=== PATIENT | male | born 1955 | race African-American/Black ===

== ENCOUNTER → 2019-05-19 | Day surgery (SDC) | payer MEDICARE, OTHER ==
--- NOTE | 2019-05-14 17:09 | Diagnostic Imaging Report ---
EXAMINATION: CHEST 2 VIEWS INDICATION: Pre-operative COMPARISON: None FINDINGS: LINES/TUBES:None LUNGS:The lungs are well-inflated. No focal consolidation or pulmonary edema. PLEURA:No pleural effusion or pneumothorax. MEDIASTINUM:The cardiomediastinal silhouette appears normal in size and shape. BONES/SOFT TISSUES:No acute osseous injury. ABDOMEN:No free air under the diaphragm. IMPRESSION: No focal pneumonia or pulmonary edema. Signed by: Chan Arellano MD on 05/14/2019 5:06 PM
[2019-05-14 17:14] LABS: ANION GAP 8.8 mmol/L (8-16); CALCIUM 8.7 mg/dL (8.4-10.2); CREATININE, SERUM 2.45 mg/dL (0.72-1.25); POTASSIUM 3.8 mmol/L (3.5-5.1)
[~2019-05-19] MED LIST: ALLOPURINOL100 MG PO; AMLODIPINE BESY10 MG PO; ATORVASTATIN CA80 MG PO; CARVEDILOL25 MG PO; CETIRIZINE HCL10 MG PO; CLONIDINE HCL0.2 MG PO; CLOTRIMAZOLE-BE15 GM TOP; DESFLURANE 240 ML BTL INH ONE; DEXAMETHASONE SOD PHOS INJ 4 MG/ML VIAL ONE; DIOVAN320 MG PO; ECOTRIN81 MG PO; FENTANYL CITRATE/PF 100MCG/2 ML INJ ONE; FERROUS SULFAT325 MG PO; FLUOCINONIDE-E15 GM TOP; FLUTICASONE P15.8 ML; GLIMEPIRIDE1 MG PO; GLYCOPYRROLATE INJ 0.2 MG/ML VIAL ONE; HYDRALAZINE HC100 MG PO; LATANOPROST 0.7.5 ML OU; LIDOCAINE HCL 2% LOCAL INJ 5 ML SDV VIAL INJ ONE; MIDAZOLAM HCL 2 MG/2 ML VIAL ONE; MUPIROCIN22 GM TOP; NEOSTIGMINE 1 MG/ML 10ML VIAL ONE; OMEPRAZOLE20 M1 PO; ONDANSETRON HCL INJ 2MG/ML 2ML 2 MG/ML VIAL ONE; OXYMETAZOLINE HCL 0.05% NAS 1 SPRAY BTL ONE; PROPOFOL IV EMULSION 10 MG/ML 20 ML VIAL ONE; ROCURONIUM BROMIDE 10 MG/ML 5ML VIAL ONE; SUCCINYLCHOLINE CHLORIDE 20 MG/ML 10ML VIAL ONE; TIMOLOL MALEATE5 M3 OU
--- OUTSIDE RECORDS SUMMARY | 2019-05-19 05:41 | XMS REPORT | Encounter Summary ---
Author Organization Unknown Address [address] [place] [address] Phone [phone] Care Team Providers Care Director Pediatric Name Role Phone Dr. Mihir Gregory 3 [phone] Mihir Gregory Jr, MD 3 [phone] Ryan Farrell MD 82 [phone] Feng Foreman MD 107 [phone] Kiko Rowan MD 111 [phone] Julisa Gaston MD 111 [phone] Reason for Visit hoarseness; diabetes Instructions 1. Type 2 diabetes mellitus glucose, fingerstick, blood HbA1c (hemoglobin A1c), blood 2. Retinopathy with type 2 diabetes mellitus 3. Chronic hoarseness ENT referral gastroenterology referral 4. Proteinuric nephropathy due to diabetes mellitus microalbumin/creatinine, mass ratio, urine 5. Chronic kidney disease stage 3 6. Hyperlipidemia lipid panel, serum CMP, serum or plasma 7. Malignant hypertensive chronic kidney disease CBC w/ auto diff urinalysis, dipstick 8. Screening for malignant neoplasm of prostate PSA, serum or plasma 9. Peripheral vascular disease 10. Morbid obesity learning about healthy weight 11. Body mass index 30+ - obesity body mass index: care instructions learning about healthy weight Discussion Note: None recorded. Plan of Care Reminders Provider Appointments Return to Office on or around 01/08/2019 Mihir Gregory Jr, MD Lab Glucose, Fingerstick, [facility]), Blood 01/08/2019 [facility] Microalbumin/creatinine, Mass Ratio, Urine 01/08/2019 [facility] Lipid Panel, Serum 01/08/2019 [facility] CMP, Serum or Plasma 01/08/2019 [facility] CBC W/ Auto Diff 01/08/2019 [facility] PSA, Serum or Plasma 01/08/2019 [facility] Urinalysis, Dipstick 01/08/2019 [facility] Referral ENT Referral 01/08/2019 Gastroenterology Referral 01/08/2019 Procedures None recorded. Surgeries None recorded. Imaging None recorded. Medications Name Start Date allopurinol 100 mg tablet TAKE 1 TABLET BY MOUTH EVERY DAY amlodipine 10 mg tablet TAKE 1 TABLET BY MOUTH EVERY DAY atorvastatin 80 mg tablet TAKE 1 TABLET BY MOUTH EVERY DAY carvedilol 25 mg tablet TAKE 1 TABLET BY MOUTH TWICE A DAY cetirizine 10 mg tablet TAKE 1 TABLET BY MOUTH EVERY DAY clonidine HCl 0.2 mg tablet TAKE 1 TABLET BY MOUTH TWICE A DAY clotrimazole-betamethasone 1 %-0.05 % topical cream APPLY TO THE AFFECTED AND SURROUNDING AREAS OF SKIN BY TOPICAL ROUTE 2 TIMES PER DAY IN THE MORNING AND EVENING FOR 2 WEEKS Ecotrin Low Strength 81 mg tablet,enteric coated Take 1 tablet every day by oral route. ferrous sulfate 325 mg (65 mg iron) tablet,delayed release Take 1 tablet every day by oral route for 90 days. fluticasone propionate 50 mcg/actuation nasal spray,suspension SPRAY 1 SPRAY INTO EACH NOSTRIL TWICE A DAY glimepiride 1 mg tablet TAKE 1 TABLET BY MOUTH EVERY DAY hydralazine 100 mg tablet TAKE 1 TABLET BY MOUTH THREE TIMES A DAY omeprazole 20 mg capsule,delayed release TAKE 1 CAPSULE BY MOUTH EVERY DAY timolol maleate 0.5 % eye gel forming solution Instill 1 drop every day by ophthalmic route for 45 days. True Metrix Glucose Test Strip Take 1 strip every day by miscell. route. valsartan 320 mg tablet TAKE 1 TABLET BY MOUTH EVERY DAY Medications Administered None recorded. Vitals Height Weight BMI Blood Pressure 5 ft 8 in 233 lbs 35.4 kg/m2 128/72 mm[Hg] Results Lab Results Date Name Specimen Result Interpretation Description Value Range Status Address Glucose, Fingerstick, Blood Blood Glucose: mg/dl 114 [facility]: [address] [facility], [place] Allergies Code Code System Name Reaction Severity Status Onset NKDA Problems Name Status Onset Date Source Type 2 Diabetes Mellitus Active 01/12/2016 Glaucoma Due to Chamber Angle Anomaly Active 01/12/2016 External Cataract of Right Eye Active 01/12/2016 External Blindness - Both Eyes Active 12/18/2016 Hyperlipidemia Active 02/02/2017 Gout Active 02/02/2017 Ocular Hypertension Active 02/02/2017 Gastroesophageal Reflux Disease Active 02/02/2017 Chronic Kidney Disease Stage 3 Active 02/02/2017 Retinopathy with Type 2 Diabetes Mellitus Active 02/02/2017 Legal Blindness Active 05/03/2017 Wjvubjzagxg-xogcfkffro-tulyrs Inhibitor Adverse Reaction Active 05/03/2017 History of Cerebrovascular Accident Active 05/03/2017 Proteinuric Nephropathy Due to Diabetes Mellitus Active 07/04/2017 Type 2 Diabetes Mellitus Active 10/08/2017 Secondary Hyperparathyroidism Active 12/12/2017 Malignant Hypertensive Chronic Kidney Disease Active 06/12/2018 Procedures Date Name Performed by Colonoscopy Information not available Colonoscopy Information not available Colonoscopy Information not available Colonoscopy & Polypectomy Information not available Colonoscopy Information not available Eye Surgery Information not available Vaccine List Vaccine Type influenza, high dose seasonal 12/11/20170.5 mL Influenza, injectable, MDCK, quadrivalent 11/20/20160.5 mL pneumococcal polysaccharide PPV23 07/03/20170.5 mL zoster subunit 07/03/2017 01/09/2018 1 0.5 mL vial(s) Social History Tobacco Smoking Status Never Smoker Past Encounters 01/08/2019 Type 2 Diabetes Mellitus; Retinopathy with Type 2 Diabetes Mellitus; Chronic Hoarseness; Proteinuric Nephropathy Due to Diabetes Mellitus; Chronic Kidney Disease Stage 3; Hyperlipidemia; Malignant Hypertensive Chronic Kidney Disease; Screening for Malignant Neoplasm of Prostate; Peripheral Vascular Disease; Morbid Obesity; Body Mass Index 30+ - Obesity Mihirshon Gregory Jr, MD: [address] [facility], [facility], [place] [address], Ph. History of Present Illness Diabetes F/U Reported By: Patient HPI: Review finger sticks: home blood sugar range high. Labs: last A1C result: 6.5. Context: no side effects from medications. Associated Symptoms: no dizziness, no sweats, no headaches, no confusion, no increased thirst, no increased appetite, no increased urination, no blurred vision, no numbness of feet Notes: Endorses medication compliance. Hypertension Reported By: Patient HPI: Severity: mild, intense. Onset/Timing: gradual onset. Alleviating Factors: relieved with rest, medication. Self Care: not under emotional stress, blood pressure goal: 130/80 140/80. Associated Symptoms: no shortness of breath, no fatigue, no decline in exercise capacity Hyperlipidemia Reported By: Patient HPI: Type of hyperlipidemia: combined, hypercholesterolemia. Duration: chronic. Current Therapy: currently taking: atorvastatin, last LDL level: 118 date: 118. Complications: no coronary artery disease. Risk Factors: diabetes, hypertension, obesity Note:Patient presents for routine blood pressure evaluation. Currently without new complaint.
Review of Systems Comprehensive General Adult ROS, Diabetes F/U ROS Reported By: Patient Constitutional: Constitutional: no fever, no significant weight gain, no significant weight loss, no exercise intolerance Eyes: Eyes: no vision change Cardiovascular: Cardiovascular: no chest pain, no shortness of breath when walking, no palpitations, no lightheadedness Respiratory: Respiratory: no cough, no wheezing, no shortness of breath Gastrointestinal: Gastrointestinal: no abdominal pain, no nausea, no vomiting, no constipation, normal appetite, no diarrhea Genitourinary: Genitourinary: no difficulty urinating, no increased frequency Musculoskeletal: Musculoskeletal: no muscle weakness, no arthralgias/joint pain Integumentary: Skin: no rashes, no laceration Neurologic: Neurologic: no weakness, no numbness, no dizziness Endocrine: Endocrine: no fatigue Physical Exam Upper Respiratory Infection Exam Comprehensive, Cardiology Exam, Diabetes, Diabetic Foot Exam Reported By: Patient Constitutional: General Appearance in no acute distress, obese Head: Sinuses no tenderness Eyes: Pupils EOM intact, PERRLA, conjunctiva non-injected Ears: Right External auditory canal normal appearance, no obstruction, no erythema, no discharge. Left External auditory canal normal appearance, no obstruction, no erythema, no discharge. Right Tympanic membrane landmarks clear, bulging. Left Tympanic membrane: landmarks clear, bulging Nose: Nasal Skin: no lesion, no lacerations. Nasal Mucosa normal, pink and moist Oral Cavity/Mouth: Lips, teeth, gums normal lips, normal gums. Oral Mucosa: normal, moist, no lesions. Tongue: normal tongue. Tonsils: normal tonsils, no lesions. Posterior pharynx: lymphoid hyperplasia (cobblestoning) Lymph Nodes: Cervical no palpable lymph node enlargement Neck: Neck symmetrical, trachea midline Lungs: Respiratory effort unlabored. Auscultation breath sounds normal, no wheezing, no rales / crackles, no rhonchi Cardiovascular System: Auscultation regular rate and rhythm, no murmur, no rubs
--- OUTSIDE RECORDS SUMMARY | 2019-05-19 05:41 | XMS REPORT | Encounter Summary ---
Author Organization Unknown Address [address] [place] [address] Phone [phone] Care Team Providers Care Mold Tooler Name Role Phone Dr. Mihir Gregory 3 [phone] Mihir Gregory Jr, MD 3 [phone] Ryan Farrell MD 82 [phone] Feng Foreman MD 107 [phone] Kiko Rowan MD 111 [phone] Julisa Gaston MD 111 [phone] Rodney Cardenas MD 118 [phone] Reason for Visit hyperlipidemia; hypertension; diabetes Instructions 1. Type 2 diabetes mellitus glucose, fingerstick, blood True Metrix Air Glucose Meter kit True Metrix Glucose Test Strip TRUEplus Lancets 33 gauge 2. Malignant hypertensive chronic kidney disease hydralazine 100 mg tablet 3. Chronic kidney disease stage 3 4. Secondary hyperparathyroidism Discussion Note: None recorded. Patient educational handouts: No information available. Plan of Care Reminders Provider Appointments None recorded. Lab Glucose, Fingerstick, Blood 06/12/2018 [facility] Referral None recorded. Procedures None recorded. Surgeries None recorded. Imaging None recorded. Medications Name Start Date allopurinol 100 mg tablet TAKE 1 TABLET BY MOUTH EVERY DAY amlodipine 10 mg tablet TAKE 1 TABLET BY MOUTH EVERY DAY atorvastatin 80 mg tablet Take 1 tablet every day by oral route. carvedilol 25 mg tablet Take 1 tablet twice a day by oral route. cetirizine 10 mg tablet TAKE 1 TABLET BY MOUTH EVERY DAY clonidine HCl 0.2 mg tablet Take 1 tablet twice a day by oral route. clotrimazole-betamethasone 1 %-0.05 % topical cream APPLY [...] day by oral route for 90 days. fluocinonide 0.05 % topical cream APPLY BID TO AFFECTED AREA fluticasone propionate 50 mcg/actuation nasal spray,suspension SPRAY 1 SPRAY INTO EACH NOSTRIL TWICE A DAY glimepiride 1 mg tablet TAKE 1 TABLET BY MOUTH EVERY DAY hydralazine 100 mg tablet Take 1 tablet 3 times a day by oral route. latanoprost 0.005 % eye drops losartan 100 mg tablet Take 1 tablet every day by oral route. mupirocin 2 % topical ointment APPLY A SMALL AMOUNT TO THE AFFECTED AREA BY TOPICAL ROUTE 3 TIMES PER DAY omeprazole 20 mg capsule,delayed release Take 1 capsule every day by oral route for 90 days. timolol maleate 0.5 % eye gel forming solution Instill 1 drop every day by ophthalmic route for 45 days. True Metrix Glucose Test Strip Take 1 strip every day by miscell. route. Medications Administered None recorded. Vitals Height Weight BMI Blood Pressure 5 ft 8 in 234 lbs 35.6 kg/m2 130/68 mm[Hg] Lab Results Date Name Specimen Result Interpretation Description Value Range Status Address Glucose, Fingerstick, Blood Blood Glucose: mg/dl 100 [facility] ([facility]: [id number] [facility] 5[facility] Allergies Code Code System Name Reaction Severity [...] Chronic Kidney Disease Stage 3 Active 02/02/2017 Diabetic Retinopathy Associated with Type 2 Diabetes Mellitus Active 02/02/2017 Legal Blindness Active 05/03/2017 Kexjmlxdiyd-usouhpviur-fafyoi Inhibitor Adverse Reaction Active 05/03/2017 History of Cerebrovascular Accident Active 05/03/2017 Proteinuric Diabetic Nephropathy Active 07/04/2017 Type 2 Diabetes Mellitus Active 10/08/2017 Secondary Hyperparathyroidism Active 12/12/2017 Malignant Hypertensive Chronic Kidney Disease Active 06/12/2018 Procedures Date Name Performed by 01/31/2016 Colonoscopy Information not available 11/10/2010 Colonoscopy Information not available 10/12/2008 Colonoscopy & Polypectomy Information not available Eye Surgery Information not available Vaccine List Vaccine Type influenza, high dose seasonal 12/11/20170.5 mL Influenza, injectable, MDCK, quadrivalent 11/20/20160.5 mL pneumococcal polysaccharide PPV23 07/03/20170.5 mL zoster subunit 07/03/2017 01/09/2018 1 0.5 mL vial(s) Social History Smoking Status Never Smoker Past Encounters 06/12/2018 Type 2 Diabetes Mellitus; Malignant Hypertensive Chronic Kidney Disease; Chronic Kidney Disease Stage 3; Secondary Hyperparathyroidism Mihir Gregory Jr, MD: [address] [facility], [address], [place] [address], Ph. History of Present Illness Diabetes F/U Reported By: Patient HPI: Labs: last A1C result: 5.4. Context: no side effects from medications. Associated Symptoms: no dizziness, no sweats, no headaches, no confusion, no increased thirst, no increased appetite, no increased urination, no blurred vision, no numbness of feet Notes: Endorses medication compliance. Hypertension Reported By: Patient HPI: Severity: mild. Onset/Timing: gradual onset. Alleviating Factors: relieved with rest, medication. Self Care: not under emotional stress, blood pressure goal: 130/80. Associated Symptoms: no shortness of breath, no fatigue, no decline in exercise capacity Hyperlipidemia Reported By: Patient HPI: Type of hyperlipidemia: combined, hypercholesterolemia. Duration: chronic. Current Therapy: currently taking: atorvastatin, last LDL level: 134 date: 134. Complications: no coronary artery disease. Risk Factors: diabetes, hypertension, obesity Note:Patient presents for routine medication refill . Currently without new complaint. Review of Systems Comprehensive General Adult ROS, Diabetes F/U ROS Reported By: Patient Constitutional: Constitutional: no significant weight gain, no significant weight loss Cardiovascular: Cardiovascular: no chest pain, no shortness of breath when walking Respiratory: Respiratory: no cough, no wheezing, no shortness of breath Endocrine: Endocrine: no fatigue Physical Exam General Adult Exam (male), Cardiology Exam, Diabetes, Diabetic Foot Exam Reported By: Patient Constitutional: General Appearance: well-nourished, well-developed, appears stated age. Level of Distress: NAD Lungs: Auscultation: good air movement, CTA except as noted, no wheezing, no rales/crackles, no rhonchi Cardiovascular: Heart Auscultation: RRR, normal S1, no rubs, no gallops, physiologically split S2, no click. Pulses including femoral / pedal: full and equal in all extremities except if noted. Systolic Murmur: not heard. Diastolic Murmur: not heard Musculoskeletal:: Extremities: no cyanosis, no edema, no peripheral signs of emboli Skin: Inspection and palpation: warm and dry Back: Thoracolumbar Appearance: no chest wall tenderness Foot Exam:: Right Foot: right foot was examined, right foot toes were examined. Left Foot: left foot was examined, left foot toes were examined
--- OUTSIDE RECORDS SUMMARY | 2019-05-19 05:41 | XMS REPORT | Encounter Summary ---
Author Organization Unknown Address [address] [place] [address] Phone [phone] Care Team Providers Care Csm Consultant Name Role Phone Dr. Mihir Gregory 3 [phone] Mihir Gregory Jr, MD 3 [phone] Ryan Farrell MD 82 [phone] Feng Foreman MD 107 [phone] Kiko Rowan MD 111 [phone] Julisa Gaston MD 111 [phone] Reason for Visit Type 2 diabetes mellitus; Malignant hypertensive chronic kidney disease; Proteinuric nephropathy due to diabetes mellitus; Chronic kidney disease stage 3; Advance Care Plan; AWV Annual Wellness Visit Male; Annual Alcohol Misuse Screening Instructions 1. Adult health examination 2. Morbid obesity learning about healthy weight 3. Advance directive discussed with patient advance care planning: care instructions 4. Depression screening 5. Alcohol consumption screening learning about alcohol misuse 6. Type 2 diabetes mellitus glucose, fingerstick, blood 7. Proteinuric nephropathy due to diabetes mellitus 8. Retinopathy with type 2 diabetes mellitus 9. Malignant hypertensive chronic kidney disease 10. Chronic kidney disease stage 3 11. Secondary hyperparathyroidism 12. Peripheral vascular disease 13. Pre-surgery evaluation Discussion Note: None recorded. Plan of Care Patient Instructions It was good to see you in the office today for your Medicare Annual Wellness Visit. You have been provided some information on healthy nutrition, including a diet rich in fruits and vegetables, minimizing simple carbohydrates, salt, and saturated fats. I want to encourage regular cardiovascular exercise such as walking at least 30 minutes daily, 5 times per week. Please remember to schedule any preventive health measures that we talked about today. You have also been provided education on fall prevention and community- based lifestyle interventions to help reduce health risks and promote healthy living in your Annual Wellness folder. Screening Recommendations 1. Vaccines Pneumonia: Influenza: Next Fall 2. Colorectal Cancer Screening: Colonoscopy (every 3 years) 3. Annual Prostate Screening 4. Annual Depression Screening 5. Annual Alcohol Screening 6. Annual Fall Risk Screening 7. Annual Health Risk Assessment Patient Instructions on Filing Advance Directives Be sure that you have easy access to your paperwork for your medical power of mill helper and ad vanced directives. Be sure that the designated person as well as important family members have copies of those forms as well. Please have contact information of your designee readily available. In the event of hospitalization, please bring those important documents with you for reference. Reminders Provider Appointments Return to Office on or around 07/14/2019 Mihir Gregory Jr, MD Lab Glucose, Fingerstick, Blood 04/16/2019 [facility] Referral None recorded. Procedures None recorded. Surgeries None recorded. Imaging None recorded. Medications Name Start Date Accu-Chek Sol Plus test strips CHECK BLOOD SUGAR ONCE A DAY allopurinol 100 mg tablet TAKE 1 TABLET [...] 90 days. fluocinonide 0.05 % topical cream UD fluticasone propionate 50 mcg/actuation nasal spray,suspension USE 1 SPRAY INTO EACH NOSTRIL TWICE A DAY glimepiride 1 mg tablet TAKE 1 TABLET BY MOUTH TWICE A DAY 90 DAY SUPPLY OK'ED; PLEASE KEEP APPT FOR 04/16/2019 hydralazine 100 mg tablet TAKE 1 TABLET BY MOUTH THREE TIMES A DAY latanoprost 0.005 % eye drops Instill 1 drop every day by ophthalmic route for 22 days. omeprazole 20 mg capsule,delayed release TAKE 1 CAPSULE BY MOUTH EVERY DAY timolol maleate 0.5 % eye drops timolol maleate 0.5 % eye gel forming solution Instill 1 drop every day by ophthalmic route for 45 days. valsartan 320 mg tablet TAKE 1 TABLET BY MOUTH EVERY DAY Medications Administered None recorded. Vitals Height Weight BMI Blood Pressure 5 ft 8 in 232 lbs 35.3 kg/m2 122/66 mm[Hg] Results Lab Results None recorded. Allergies Code Code System Name Reaction Severity [...] Mellitus Active 02/02/2017 Legal Blindness Active 05/03/2017 Enzfcvopedm-yipnoenlon-msnxln Inhibitor Adverse Reaction Active 05/03/2017 History of [...] mL pneumococcal polysaccharide PPV23 07/03/20170.5 mL zoster recombinant 07/03/2017 01/09/2018 1 0.5 mL vial(s) Social History Tobacco Smoking Status Never Smoker Past Encounters 04/16/2019 Adult Health Examination; Morbid Obesity; Advance Directive Discussed with Patient; Depression Screening; Alcohol Consumption Screening; Type 2 Diabetes Mellitus; Proteinuric Nephropathy Due to Diabetes Mellitus; Retinopathy with Type 2 Diabetes Mellitus; Malignant Hypertensive Chronic Kidney Disease; Chronic Kidney Disease Stage 3; Secondary Hyperparathyroidism; Peripheral Vascular Disease; Pre-surgery Evaluation Mihir Gregory Jr, MD: [address], [address], [place] [address], Ph. History of Present Illness Mini Cog Reported By: Patient Functional Ability: Personal/Social/ Draw a clock and write in the numbers in the correct place, and set the time to 10 minutes after 11 o'clock was completed correctly? No, 3 word recall: Your nurse or doctor will ask you to remember 3 words. In 5 minutes, they will ask you to repeat them. Patient recalled 3 words Notes: Unable to complete Clock, patient is legally blind. Generic HPI Template Reported By: Patient Notes: Patient presents for routine lab follow up. Currently without new complaint. Opioid Use Assessment Reported By: Patient Opioid Use Assessment:: Current Use of Opioids : no use of opioids (no further questions required) Note:I'd like to talk about what is ahead with your illness and do some thinking in advance about what is important to you so I can make sure we provide you with the care you want-is that okay? {{Yes*|No}} Review of Systems Comprehensive General Adult ROS, [...] regular rate and rhythm, no murmur, no rubs"
--- OUTSIDE RECORDS SUMMARY | 2019-05-19 05:41 | XMS REPORT | Encounter Summary ---
Author Organization Unknown Address [address] [place] [address] Phone [phone] Care Team Providers Care Fine Sander Name Role Phone Dr. Mihir Gregory 3 [phone] Mihir Gregory Jr, MD 3 [phone] Ryan Farrell MD 82 [phone] Feng Foreman MD 107 [phone] Kiko Rowan MD 111 [phone] Julisa Gaston MD 111 [phone] Rodney Cardenas MD 118 [phone] Reason for Visit Left nose bleed(s); hypertension; diabetes Instructions 1. Type 2 diabetes mellitus glucose, fingerstick, blood HbA1c (hemoglobin A1c), blood 2. Proteinuric diabetic nephropathy microalbumin:creatinine ratio, urine 3. Malignant hypertensive chronic kidney disease CMP, serum or plasma urinalysis, dipstick 4. Chronic kidney disease stage 3 5. Bleeding from nose CBC w/ auto diff 6. Hyperlipidemia high cholesterol: care instructions lipid panel, serum 7. Influenza vaccination declined Discussion Note: None recorded. Plan of Care Reminders Provider Appointments Est Patient 09/11/2018 10:15AM Mihir Gregory Jr, MD Lab Glucose, Fingerstick, Blood 07/30/2018 [facility] 07/30/2018 [facility] CMP, Serum or Plasma 07/30/2018 [facility] HbA1C (Hemoglobin a1C), Blood 07/30/2018 [facility] Microalbumin:creatinine Ratio, Urine 07/30/2018 [facility] Lipid Panel, Serum 07/30/2018 [facility] Urinalysis, Dipstick 07/30/2018 [facility]) [place] Referral None recorded. Procedures None recorded. Surgeries [...] by miscell. route. valsartan 320 mg tablet Medications Administered None recorded. Vitals Height Weight BMI Blood Pressure 5 ft 8 in 234 lbs 35.6 kg/m2 (1) 186/92 mm[Hg] (2) 180/90 mm[Hg] (3) 158/80 mm[Hg] Lab Results Date Name Specimen Result Interpretation Description Value Range Status Address 07/30/2018 Urinalysis, Dipstick Color Color yellow [facility] ([facility]) Hobby: [address] [place] Color Appearance clear [facility] ([facility]) Hobby: [address], [place] Color Glucose negative [facility] ([facility]: [address], [place] Color Bilirubin negative [facility] Hobby: [address], [place] Color Ketones negative [facility] ([facility]) [address]: [address] [place] Color Specific [place] 1.015 [facility] ([facility]) Hobby: [address] [place] Color Blood negative [facility] ([facility]) Hobby: [address] [place] Color PH 5.5 [facility] Hobby: [address] [place] Color Protein 100 [facility] Hobby: [address] [place] Color Urobilinogen 0.2 [facility] ([facility] Hobby: [address] [place] Color Nitrites negative [facility] ([facility]) Hobby: [address], [place] Color Leukocytes negative [facility] ([facility]) Hobby: [address], [place] Glucose, Fingerstick, Blood Blood Glucose: mg/dl 116 [facility] ([facility]) Hobby: [address], [place] Allergies Code Code System Name Reaction Severity [...] Mellitus Active 02/02/2017 Legal Blindness Active 05/03/2017 Dseastsomjp-rrxmanqoin-vnxyqw Inhibitor Adverse Reaction Active 05/03/2017 History of [...] History Smoking Status Never Smoker Past Encounters 07/30/2018 Type 2 Diabetes Mellitus; Proteinuric Diabetic Nephropathy; Malignant Hypertensive Chronic Kidney Disease; Chronic Kidney Disease Stage 3; Bleeding from Nose; Hyperlipidemia; Influenza Vaccination Declined Mihir Gregory Jr, MD: [address] [facility], [place] [address], Ph. History of Present Illness Diabetes F/U Reported By: Patient HPI: Labs: last A1C result: 5.4. Context: no side effects from medications. Associated Symptoms: no dizziness, no sweats, no headaches, no confusion, no increased thirst, no increased appetite, no increased urination, no blurred vision, no numbness of feet Notes: Endorses medication compliance. Hypertension Reported By: Patient HPI: Severity: intense. Onset/Timing: gradual onset. Alleviating Factors: relieved with rest, medication. Self Care: not under emotional stress, blood pressure goal: 140/80. Associated Symptoms: no shortness of breath, [...] Review of Systems Comprehensive General Adult ROS, Comprehensive Adult Problem ROS, Diabetes F/U ROS Reported By: Patient Constitutional: Constitutional: no fever Eyes: Eyes: no eye pain, no eye redness, no eye swelling, no eye discharge ENMT: Ears: no difficulty hearing, no ear pain, no ear discharge, no sinus pressure, no facial swelling, no congestion, no hoarseness. Nose: no sinus problems, frequent nosebleeds, nose problems. Mouth/Throat: no sore throat, no mouth ulcers Endocrine: Endocrine: no fatigue Constitutional: Constitutional: no significant weight change, normal activity level Physical Exam General Adult Exam (male), Upper Respiratory Infection Exam Comprehensive, Cardiology Exam, Diabetes, Diabetic Foot Exam Reported By: Patient Constitutional: General Appearance: in no acute distress Eyes: Lids and Conjunctivae: non-injected. Pupils: PERRLA. EOM: EOMI ENMT: Nose: no sinus tenderness, pink and moist, external nose lesion, crusted. Nasal Skin: no lacerations Neck: Neck: trachea midline, symmetrical Ears: Right External auditory canal normal appearance, no obstruction, no erythema, no discharge. Left External auditory canal normal appearance, no obstruction, no erythema, no discharge. Right Tympanic membrane landmarks clear. Left Tympanic membrane: landmarks clear Oral Cavity/Mouth: Lips, teeth, gums normal lips, normal gums. Oral Mucosa: normal, moist, no lesions. Tongue: normal tongue. Tonsils: normal tonsils, no lesions. Posterior pharynx: normal Lymph Nodes: Cervical no palpable lymph node enlargement
--- OUTSIDE RECORDS SUMMARY | 2019-05-19 05:41 | XMS REPORT | Encounter Summary ---
Author Organization Unknown Address [address] [place] [address] Phone [phone] Care Team Providers Care Sales Coach Name Role Phone Dr. Mihir Gregory 3 [phone] Mihir Gregory Jr, MD 3 [phone] Ryan Farrell MD 82 [phone] Feng Foreman MD 107 [phone] Kiko Rowan MD 111 [phone] Julisa Gaston MD 111 [phone] Reason for Visit lab follow-up Instructions 1. Type 2 diabetes mellitus glucose, fingerstick, blood 2. Malignant hypertensive chronic kidney disease 3. Chronic kidney disease stage 3 4. Secondary hyperparathyroidism Discussion Note: None recorded. Patient educational handouts: No information available. Plan of Care Reminders Provider Appointments Est Patient 04/09/2019 9:45AM Mihir Gregory Jr, MD Lab Glucose, Fingerstick, Blood 01/14/2019 [facility] Referral None recorded. Procedures None recorded. Surgeries [...] 1 TABLET BY MOUTH TWICE A DAY hydralazine 100 mg tablet TAKE 1 [...] ft 8 in 232 lbs 35.3 kg/m2 (1) 148/80 mm[Hg] (2) 136/78 mm[Hg] Results Lab Results Date Name Specimen Result Interpretation Description Value Range Status Address 01/08/2019 Microalbumin/creatinine, Mass Ratio, Urine Microalbumin Random Urine 962 ug/mL Final [facility]: [address] [place] [address] Normal Creatinine Random Urine 135.5 mg/dL 20.0-370.0 mg/dL Final [facility]: [address] [place] [address] High Microalbumin/creatinine (Random Urine) Ratio Calculated 710 mcg/mg creat Final [facility]: [address] [place], [place] [address] 01/08/2019 HbA1C (Hemoglobin a1C), Blood High Hemoglobin a1C 5.8 % of total HGB <5.7 % of total HGB Final [facility]: [address] [place], [place] [address] [address] EAG (mg/dL) 120 (calc) Final [facility]: [address] [place] [address] EAG (mmol/L) 6.6 (calc) Final [facility]: [address] [place], [place] [address]y [address] 01/08/2019 CBC W/ Auto Diff Wbc 4.23 x10*3/L 4.23-9.07 x10*3/L Final [facility]: [address] [place] [address] Low Rbc 3.34 10*12/L 4.63-6.08 10*12/L Final [facility]: [address] [place] [address] Low Hemoglobin 9.80 g/dL 13.70-17.50 g/dL Final [facility]: [address] [place] Low Hematocrit 29.6 % 40.1-51.0 % Final [facility]: [address] [place] Mcv 88.6 fL 80.0-100.0 fL Final [facility]: [address] [place] Mch 29.3 pg 25.7-32.2 pg Final [facility]: [address] [place] Mchc 33.1 g/dL 32.3-36.5 g/dL Final [facility]: [address] [place] High RDW-SD 46.4 fL 35.1-43.9 fL Final [facility]: [address] [place] Platelet Count 236.0 k/uL 163.0-337.0 k/uL Final [facility]: [address] [place] High Mpv 13.5 fL 7.5-11.5 fL Final [facility]: [address] [place] Neut% 62.0 % 34.0-67.9 % Final [facility]: [address] [place] Lymph% 26.7 % 21.8-53.1 % Final [facility]: [address] [place] Mon% 8.0 % 5.3-12.2 % Final [facility]: [address] [place] Eos% 2.6 % 0.8-7.0 % Final [facility]: [address] [place] Baso% 0.7 % 0.2-1.2 % Final [facility]: [address] [place] Neut# 2.6 x10*3/L 1.8-5.4 x10*3/L Final [facility]: [address] [place] Low Lymph# 1.1 x10*3/L 1.3-3.6 x10*3/L Final [facility]: [address] [place] Mon# 0.3 x10*3/L 0.3-0.8 x10*3/L Final [facility]: [address] [place] Eos# 0.11 x10*3/L 0.04-0.54 x10*3/L Final [facility]: [address] [place] Baso# 0.03 x10*3/L 0.01-0.08 x10*3/L Final [facility]: [address] [place] 01/08/2019 CMP, Serum or Plasma Alt 16 U/L 0-55 U/L Final [facility]: [address] Ast 17 U/L 5-34 U/L Final [facility]: [address] [place] [address] High Bun 31.7 mg/dL 8.4-25.0 mg/dL Final [facility]: [address] Alk Phos 101 unit/L 40-150 unit/L Final [facility]: [address] Glucose 96 mg/dL 70-99 mg/dL Final [facility]: [address] Low Albumin 3.1 g/dL 3.4-5.1 g/dL Final [facility]: [address] [place] [address] High Creatinine 2.41 mg/dL 0.72-1.25 mg/dL Final [facility]: [address] [place] [address] ABNORMAL eGFR Non- 27 mL/min/1.73m2 Final [facility]: [address] Total Bilirubin 0.4 mg/dL 0.2-1.2 mg/dL Final [facility]: [address] ABNORMAL eGFR - 33 mL/min/1.73m2 Final [facility]: [address] [place] [address] Sodium 140 mEq/L 135-145 mEq/L Final [facility]: [address] Potassium 4.0 mEq/L 3.5-5.1 mEq/L Final [facility]: [address] Chloride 110 mmol/L 98-110 mmol/L Final [facility]: [address] Low Total Protein 5.6 g/dL 6.1-8.2 g/dL Final [facility]: [address] Low Calcium 8.4 mg/dL 9.0-10.2 mg/dL Final [facility]: [facility] [address] Co2 21.8 mmol/L 20.0-32.0 mmol/L Final [facility]: [address] [place] [address] Anion Gap 8 calc Final [facility]: [facility] [address] 01/08/2019 Lipid Panel, Serum Low Hdl 36 mg/dL Final [facility]: [facility] [address] Triglyceride 77 mg/dL 0-150 mg/dL Final [facility]: [facility] [address] VLDL (Calculated) 15 mg/dL Final [facility]: [address] [place] [address] cholesterol/HDL Ratio 4.0 mg/dL Final [facility]: [facility] [address] non-HDL Cholesterol (Calculated) 108 mg/dL 0-160 mg/dL Final [facility]: [facility] [address] Cholesterol 144 mg/dL 0-200 mg/dL Final [facility]: [facility] [address] LDL (Calculated) 93 mg/dL 0-130 mg/dL Final [facility]: [facility] [address] 01/08/2019 PSA, Serum or Plasma PSA, Total 0.49 NG/mL 0.00-4.00 NG/mL Final [facility]: [facility] [address] 01/08/2019 Vitamin B12 + Folate, Serum or Blood Normal Vitamin B12 492 pg/mL 200-1100 pg/mL Final [facility]: [facility] [address] Normal Folate, Serum 7.5 NG/mL Final [facility]: [facility] [address] 01/08/2019 Iron + Total Iron-binding Capacity (TIBC), Serum Normal Iron, Total 60 mcg/dL 50-180 mcg/dL Final [facility]: [address] [place] [address] Low Iron Binding Capacity 194 mcg/dL (calc) 250-425 mcg/dL (calc) Final [facility]: [address] [place] [address], [place] Normal % Saturation 31 % (calc) 20-48 % (calc) Final [facility]: [address] [facility] [address], [place] 01/08/2019 Transferrin, Serum Low Transferrin 147 mg/dL 188-341 mg/dL Final [facility]: [address] [place] [address], [place] 01/08/2019 Urinalysis, Dipstick Color Color yellow [facility]: [address] [place] Color Appearance clear [facility]: [address] [place] Color Glucose negative [facility]: [address] [place] Color Bilirubin negative [facility]: [address] [place] Color Ketones negative [facility]: [address] [place] Color Specific [place] 1.020 [facility]: [address] [place] Color Blood negative [facility]: [address] [place] Color PH 5.5 [facility]: [address] [place] Color Protein 300 [facility]: [address] [place] Color Urobilinogen 0.2 [facility]: [address] [place] Color Nitrites negative [facility]: [address] [place] Color Leukocytes negative [facility]: [address] [place] Glucose, Fingerstick, Blood Blood Glucose: mg/dl 152 [facility]: [address] [place] Glucose, Fingerstick, Blood Blood Glucose: mg/dl 114 [facility]: [address], [place] Allergies Code Code System Name Reaction Severity [...] Mellitus Active 02/02/2017 Legal Blindness Active 05/03/2017 Rmnuvmpcuqv-lgsxauoxwp-qwyqyk Inhibitor Adverse Reaction Active 05/03/2017 History of [...] Tobacco Smoking Status Never Smoker Past Encounters 01/14/2019 Type 2 Diabetes Mellitus; Malignant Hypertensive Chronic Kidney Disease; Chronic Kidney Disease Stage 3; Secondary Hyperparathyroidism Mihir Gregory Jr, MD: [address], [facility], [place] [address], Ph. 01/08/2019 Type 2 Diabetes Mellitus; Retinopathy with Type 2 Diabetes Mellitus; Chronic Hoarseness; Proteinuric Nephropathy Due to Diabetes Mellitus; Chronic Kidney Disease Stage 3; Hyperlipidemia; Malignant Hypertensive Chronic Kidney Disease; Screening for Malignant Neoplasm of Prostate; Peripheral Vascular Disease; Morbid Obesity; Body Mass Index 30+ - Obesity Mihir Gregory Jr, MD: [address], [facility], [place] [address], Ph. History of Present Illness Generic HPI Template Reported By: Patient Notes: Patient presents for routine lab follow up. Currently without new complaint. Review of Systems Comprehensive General Adult ROS Reported By: Patient Constitutional: Constitutional: no significant weight gain, no significant weight loss Cardiovascular: Cardiovascular: no chest pain, no shortness of breath when walking Respiratory: Respiratory: no cough, no wheezing, no shortness of breath Endocrine: Endocrine: no fatigue Physical Exam Neurology Exam, Cardiology Exam Reported By: Patient Constitutional: Weight: well-nourished. Ambulation: ambulates independently Head: Size/Trauma: normocephalic Mental Status: Orientation oriented to person, oriented to place, oriented to time. Mood/Affect: appropriate mood, appropriate affect. Language: has spontaneous speech. Memory: recent memory intact, remote memory intact. Fund of Knowledge: current events, past history
--- OUTSIDE RECORDS SUMMARY | 2019-05-19 05:41 | XMS REPORT ---
Author Author [facility] Address Unknown Phone Unavailable Care Team Providers Care Supervisor Filter Assembly Name Role Phone JOSE HERNANDEZ Unavailable Unavailable Problems This patient has no known problems. Allergies, Adverse Reactions, Alerts This patient has no known allergies or adverse reactions. Medications This patient has no known medications. Results Test Description Test Time Test Comments Text Results Atomic Results Result Comments CHEST 2 VIEWS 2019-05-14 17:06:00 [place] [address] Patient Name: NIA SANDY MR #: [id number] : 1955 Age/Sex: 63/M Req #: [id number] Adm Physician: Ordered by: DAVID WILSON, JOSE WILSON Report #: [id number] Location: OR Room/Bed: Procedure: [id number] DX/CHEST 2 VIEWS Exam Date: 05/14/19 Exam Time: 1610 REPORT STATUS: Signed EXAMINATION: CHEST 2 VIEWS INDICATION: Pre-operative COMPARISON: None FINDINGS: LINES/TUBES:None LUNGS:The lungs are well-inflated. No focal consolidation or pulmonary edema. PLEURA:No pleural effusion or pneumothorax. MEDIASTINUM:The cardiomediastinal silhouette appears normal in size and shape. BONES/SOFT TISSUES:No acute osseous injury. ABDOMEN:No free air under the diaphragm. IMPRESSION: No focal pneumonia or pulmonary edema. Signed by: Esther Doherty MD on 05/14/2019 5:06 PM Dictated By: ESTHER DOHERTY MD 05 Transcribed By: JARRED WILDE on 05/14/191705 COPY TO: JOSE HERNANDEZ
--- OUTSIDE RECORDS SUMMARY | 2019-05-19 05:41 | XMS REPORT ---
Author Organization Unknown Address [address] [place] [address] Phone [phone] Care Team Providers Care Inspector Rag Sorting Name Role Phone Mihir Gregory Jr Unavailable Unavailable Allergies Code Code System Name Reaction Severity Status Onset NKDA Medications Name Status Start Date Stop Date allopurinol 100 mg tablet Active Not available amlodipine 10 mg tablet Active Not available atorvastatin 10 mg tablet Completed 11/23/2016 atorvastatin 20 mg tablet Completed 05/03/2017 atorvastatin 40 mg tablet Active Not available azithromycin 250 mg tablet Completed 12/18/2016 betamethasone dipropionate 0.05 % topical cream Completed 12/18/2016 carvedilol 25 mg tablet Active Not available cetirizine 10 mg tablet Take 1 tablet every day by oral route for 60 days. Active Not available Ecotrin Low Strength 81 mg tablet,enteric coated Take 1 tablet every day by oral route. Active Not available enalapril maleate 20 mg tablet TAKE 1 TABLET PO TWICE A DAY Completed 05/03/2017 ferrous sulfate 325 mg (65 mg iron) tablet,delayed release Take 1 tablet every day by oral route for 90 days. Active Not available fluocinonide 0.05 % topical cream Active Not available glimepiride 1 mg tablet Active Not available glimepiride 2 mg tablet TAKE 1 TABLET BY MOUTH EVERY DAY Completed 05/03/2017 hydralazine 25 mg tablet Take 1 tablet twice a day by oral route for 30 days. Active Not available hydrochlorothiazide 25 mg tablet Take 1 tablet(s) every day by oral route for 90 days. Completed 05/03/2017 latanoprost 0.005 % eye drops Active Not available nifedipine ER 60 mg tablet,extended release Completed 05/03/2017 nifedipine ER 60 mg tablet,extended release 24 hr TAKE 1 TABLET BY MOUTH TWICE A DAY Completed 05/03/2017 omeprazole 20 mg capsule,delayed release Take 1 capsule every day by oral route. Active Not available omeprazole 40 mg capsule,delayed release Completed 06/04/2017 SYLOBUCH ULTRA BLUE TEST STRIPS use once daily as directed Active Not available OneTouch Ultra Test strips Take 1 strip every day by miscell. route for 90 days. Completed 06/04/2017 pantoprazole 40 mg tablet,delayed release Completed 02/02/2017 timolol maleate 0.5 % eye gel forming solution Active Not available valsartan 320 mg tablet Active Not available Vitamin D3 1,000 unit capsule Take 1 capsule every day by oral route for 90 days. Active Not available Zostavax (PF) 19,400 unit/0.65 mL subcutaneous suspension Completed 05/03/2017 Problems Name Status Onset Date Source Blindness - Both Eyes Active 12/18/2016 Renal Disorder Due to Type 2 Diabetes Mellitus Active 02/02/2017 Hyperlipidemia Active 02/02/2017 Gout Active 02/02/2017 Ocular Hypertension Active 02/02/2017 Benign Hypertensive Renal Disease Active 02/02/2017 Gastroesophageal Reflux Disease Active 02/02/2017 Chronic Kidney Disease Stage 3 Active 02/02/2017 Diabetic Retinopathy Associated with Type 2 Diabetes Mellitus Active 02/02/2017 Type 2 Diabetes Mellitus Active 05/03/2017 Legal Blindness Active 05/03/2017 Bwbswyiebud-disfkgkrwo-rkhhkh Inhibitor Adverse Reaction Active 05/03/2017 History of Cerebrovascular Accident Active 05/03/2017 Chronic Kidney Disease Due to Type 2 Diabetes Mellitus Active 05/03/2017 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 Active 05/03/2017 Procedures Date Name Performed by Eye Surgery Information not available Lab Results Date Name Specimen Result Interpretation Description Value Range Status Address 05/03/2017 HbA1C (Hemoglobin a1C), Blood A1C W/eag 5.5 % 1.0-5.7 % Final [facility]: [address] [place] [address] Average Blood Glucose 111 mg/dL Final [facility]: [address] [place] [address], [place] 05/03/2017 Uric Acid, Serum or Plasma Uric Acid 6.9 mg/dL 3.5-7.2 mg/dL Final [facility]: [facility] [place] [address], [place] 02/02/2017 Hepatitis C Virus RNA, Quant, PCR, Serum or Plasma Normal Hepatitis C Antibody non-reactive non-reactive [facility]: [address] [place] [address] Normal Signal to Cut-off 0.03 <1.00 Final [facility]: [address] [place] [address], [place] 02/02/2017 Lipid Panel, Serum Low Hdl 37 mg/dL 40-60 mg/dL Final [facility]: [address] Triglyceride 130 mg/dL 0-149 mg/dL Final [facility]: [address] VLDL Calc. 26 mg/dL Final [facility]: [address] [facility]/HDL Ratio 6.1 mg/dL Final [facility]: [address] [facility] High non-HDL Cholesterol Calc. 188 mg/dL 0-160 mg/dL Final [facility]: [address] High Cholesterol 225 mg/dL 0-199 mg/dL Final [facility]: [address] High LDL Calc. 162 mg/dL 0-130 mg/dL Final [facility]: [address] [facility] 11/20/2016 CBC W/ Auto Diff Wbc 5.49 x10*3/L 4.23-9.07 x10*3/L Final [facility]: [address] [place] [address] Rbc 4.98 10*12/L 4.63-6.08 10*12/L Final [facility]: [address] Hemoglobin 14.30 g/dL 13.70-17.50 g/dL Final [facility]: [address] [facility] Hematocrit 42.2 % 40.1-51.0 % Final [facility]: [address] [facility] Mcv 84.7 fL 80.0-100.0 fL Final [facility]: [address] [facility] Mch 28.7 pg 25.7-32.2 pg Final [facility]: [address] Mchc 33.9 g/dL 32.3-36.5 g/dL Final [facility]: [address] [facility] High RDW-SD 45.1 fL 35.1-43.9 fL Final [facility]: [address] Platelet Count 267.0 k/uL 163.0-337.0 k/uL Final [facility]: [address] [facility] Mpv 11.2 fL 7.5-11.5 fL Final [facility]: [address] [place] Neut% 64.5 % 34.0-67.9 % Final [facility]: [address] [place] Lymph% 24.0 % 21.8-53.1 % Final [facility]: [address] [place] Mon% 7.5 % 5.3-12.2 % Final [facility]: [address] [place] Eos% 3.5 % 0.8-7.0 % Final [facility]: [address] [place] Baso% 0.5 % 0.2-1.2 % Final [facility]: [address] [place] Neut# 3.5 x10*3/L 1.8-5.4 x10*3/L Final [facility]: [address] [place] Low Lymph# 1.3 x10*3/L 1.3-3.6 x10*3/L Final [facility]: [address] [place] Mon# 0.4 x10*3/L 0.3-0.8 x10*3/L Final [facility]: [address] [place] Eos# 0.19 x10*3/L 0.04-0.54 x10*3/L Final [facility]: [address] [place] Baso# 0.03 x10*3/L 0.01-0.08 x10*3/L Final [facility]: [address] [place] 11/20/2016 CMP, Serum or Plasma Alt 18 U/L 0-55 U/L Final [facility]: [address] [facility] Ast 18 U/L 5-34 U/L Final [facility]: [address] [facility] High Bun 26.5 mg/dL 8.4-25.7 mg/dL Final [facility]: [address] [facility] Alk Phos 103 unit/L 40-150 unit/L Final [facility]: [address] [place] Low Glucose 66 mg/dL 70-99 mg/dL Final [facility]: [address] [place] Albumin 3.9 g/dL 3.5-5.0 g/dL Final [facility]: [address] [place] High Creatinine 1.83 mg/dL 0.72-1.25 mg/dL Final [facility]: [address] [place] Low eGFR Non- 38 mL/min/1.73m2 >60 mL/min/1.73m2 Final [facility]: [address] [place] Total Bilirubin 0.6 mg/dL 0.2-1.2 mg/dL Final [facility]: [address] [place] Low eGFR - 46 mL/min/1.73m2 >60 mL/min/1.73m2 Final [facility]: [address] [place] Sodium 141 mEq/L 136-145 mEq/L Final [facility]: [address] [facility] Potassium 4.1 mEq/L 3.5-5.1 mEq/L Final [facility]: [address] [place] High Chloride 109 mmol/L 98-107 mmol/L Final [facility]: [address] [place] Total Protein 7.4 g/dL 6.4-8.3 g/dL Final [facility]: [address] [place] Calcium 9.1 mg/dL 8.8-10.0 mg/dL Final [facility]: [address] [place] Low Co2 22.9 mmol/L 23.0-31.0 mmol/L Final [facility]: [address] [place] Anion Gap 9 calc Final [facility]: [address], [place] 11/20/2016 Lipid Panel, Serum Hdl 45 mg/dL 40-60 mg/dL Final [facility]: [address], [place] Triglyceride 61 mg/dL 0-149 mg/dL Final [facility]: [address], [place] VLDL Calc. 12 mg/dL Final [facility]: [address] cholesterol/HDL Ratio 5.0 mg/dL Final [facility]: [address] High non-HDL Cholesterol Calc. 182 mg/dL 0-160 mg/dL Final [facility]: [address] High Cholesterol 227 mg/dL 0-199 mg/dL Final [facility]: [address] High LDL Calc. 170 mg/dL 0-130 mg/dL Final [facility]: [address] [place] [address], [place] 11/20/2016 TSH, Serum or Plasma Tsh 1.298 uIU/mL 0.350-4.940 uIU/mL Final [facility]: [address] [place] [address], [place] 11/20/2016 PSA, Serum or Plasma PSA, Total 0.71 NG/mL <4.00 NG/mL Final [facility]: [address] [place] [place] [address], [place] 11/20/2016 HbA1C (Hemoglobin a1C), Blood A1C W/eag 5.5 % 1.0-5.7 % Final [facility]: [address] Average Blood Glucose 111 mg/dL Final [facility]: [address] [place] [address], [place] 11/20/2016 Uric Acid, Serum or Plasma Uric Acid 6.7 mg/dL 3.5-7.2 mg/dL Final [facility]: [address] Glucose, Fingerstick, Blood Blood Glucose: mg/dl 114 [facility]: [address] Glucose, Fingerstick, Blood Blood Glucose: mg/dl 98 [facility]: [address] Glucose, Fingerstick, Blood Blood Glucose: mg/dl 71 [facility]: [address] Urinalysis, Dipstick Color Color yellow [facility]: [address] [place] [address], [place] Color Appearance clear [facility]: [address] [place] [address], [place] Color Glucose negative [facility]: [address] Color Bilirubin negative [facility]: [address] Color Ketones negative [facility]: [address] Color Specific [place] 1.010 [facility]: [address] Color Blood trace [facility]: [address] Color PH 6.0 [facility]: [address] Color Protein 100 [facility]: [address] Color Urobilinogen 0.2 [facility]: [address] Color Nitrites negative [facility]: [address] [place] [address], [place] Color Leukocytes negative [facility]: [address] Glucose, Fingerstick, Blood Blood Glucose: mg/dl 83 [facility]: [address] Glucose, Fingerstick, Blood Blood Glucose: mg/dl 84 [facility]: [address] Past Encounters 06/04/2017 Benign Hypertensive Renal Disease; Type 2 Diabetes Mellitus; Morbid Obesity; Gastroesophageal Reflux Disease; Allergic Rhinitis Mihir Gregory Jr, MD: [address] [address], Ph. 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 02/02/2017 Hyperlipidemia; Gout; Ocular Hypertension; Chronic Kidney Disease Stage 3; Benign Hypertensive Renal Disease; Gastroesophageal Reflux Disease; Diabetic Retinopathy Associated with Type 2 Diabetes Mellitus; Renal Disorder Due to Type 2 Diabetes Mellitus; Blindness - Both Eyes; Screening for Disorder; Advance Directive Discussed with Patient; Depression Screening; Body Mass Index 30+ - Obesity; Obesity Glynn Noriega MD: 8951 [facility], [address] [address], Ph. 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 Social History Smoking Status Never Smoker Vaccine List Vaccine Type Influenza, injectable, MDCK, quadrivalent 11/20/20160.5 mL Plan of Care Patient Instructions It was [...] risks and promote healthy living in your Wink folder. Screening Recommendations 1. Vaccines Pneumococcal: discussed today and information sent with patient in their [facility] health folder Influenza: discussed today and information sent with patient in their [facility] health folder Shingles: discussed today and information sent with patient in their [facility] health folder Tetanus: discussed today and information sent with patient in their [facility] health folder 2. Mammography Screening: discussed today and information sent with patient in their [facility] health folder 3. Colorectal cancer Screening Colonoscopy: discussed today and information sent with patient in their [facility] health folder Fecal Occult Blood: discussed today and information sent with patient in their [facility] health folder 4. Bone Mass Measurement: discussed today 5. Pap test / Pelvic Exam Screening: discussed today 6. Eye Exam Screening: discussed today 7. Cholesterol Screening: discussed today 8. Diabetes Screening: discussed today Reminders Provider Appointments None recorded. Lab None recorded. Referral None recorded. Procedures None recorded. Surgeries None recorded. Imaging None recorded. Vitals 06/04/2017 09:45AM Est Patient Height Weight BMI Blood Pressure 5 ft 8 in 235 lbs 35.7 kg/m2 166/80 mm[Hg] 05/03/2017 09:45AM Est Patient Height Weight BMI Blood Pressure 5 ft 8 in 238 lbs 36.2 kg/m2 126/64 mm[Hg] 02/02/2017 10:15AM [facility] Height Weight BMI Blood Pressure 5 ft 8 in 232 lbs 35.3 kg/m2 130/70 mm[Hg] 12/18/2016 10:00AM Est Patient Height Weight BMI Blood Pressure 5 ft 8 in 233 lbs 35.4 kg/m2 140/80 mm[Hg]
--- OUTSIDE RECORDS SUMMARY | 2019-05-19 05:41 | XMS REPORT | Encounter Summary ---
Author Organization Unknown Address [address] [place] [address] Phone [phone] Care Team Providers Care Nursing Associate Name Role Phone Dr. Mihir Gregory 3 [phone] Mihir Gregory Jr, MD 3 [phone] Ryan Farrell MD 82 [phone] Feng Foreman MD 107 [phone] Kiko Rowan MD 111 [phone] Julisa Gaston MD 111 [phone] Reason for Visit lab follow-up Instructions 1. Type 2 diabetes mellitus glucose, fingerstick, blood 2. Malignant hypertensive chronic kidney disease 3. Chronic kidney disease stage 3 4. Secondary hyperparathyroidism 5. Anemia fecal occult blood, stool Discussion Note: None recorded. Patient educational handouts: No information available. Plan of Care Reminders Provider Appointments Est Patient 04/09/2019 9:45AM Mihir Gregory Jr, MD Lab Glucose, Fingerstick, Blood 01/14/2019 [facility] Fecal Occult Blood, Stool 01/14/2019 [facility] Referral None recorded. Procedures None recorded. Surgeries [...] Urine Microalbumin Random Urine 962 ug/mL Final [facility]: [address] [place] [address] Normal Creatinine Random Urine 135.5 mg/dL 20.0-370.0 mg/dL Final [facility]: [address] [place] [address] High Microalbumin/creatinine (Random Urine) Ratio Calculated 710 mcg/mg creat Final [facility]: [address] [place] [address] 01/08/2019 HbA1C (Hemoglobin a1C), Blood High Hemoglobin a1C 5.8 % of total HGB <5.7 % of total HGB Final [facility]: [address] [place] [address] EAG (mg/dL) 120 (calc) Final [facility]: [address] [place] [address] EAG (mmol/L) 6.6 (calc) Final [facility]: [address] [place], [place] [address]hon[place] [address] 01/08/2019 CBC W/ Auto Diff Wbc 4.23 x10*3/L 4.23-9.07 x10*3/L Final [facility]: [address] [place] [address] Low Rbc 3.34 10*12/L 4.63-6.08 10*12/L Final [facility]: [address] [place] Low Hemoglobin 9.80 g/dL 13.70-17.50 g/dL Final [facility]: [address] [place] Low Hematocrit 29.6 % 40.1-51.0 % Final [facility]: [address] [place] Mcv 88.6 fL 80.0-100.0 fL Final [facility]: [address] [place] Mch 29.3 pg 25.7-32.2 pg Final [facility]: [address] [facility] Mchc 33.1 g/dL 32.3-36.5 g/dL Final [facility]: [address] [place] High RDW-SD 46.4 fL 35.1-43.9 fL Final [facility]: [address] [facility] Platelet Count 236.0 k/uL 163.0-337.0 k/uL Final [facility]: [address] [facility] Mpv 13.5 fL 7.5-11.5 fL Final [facility]: [address] [facility] Neut% 62.0 % 34.0-67.9 % Final [facility]: [address] [place] Lymph% 26.7 % 21.8-53.1 % Final [facility]: [address] [facility] Mon% 8.0 % 5.3-12.2 % Final [facility]: [address] [facility] Eos% 2.6 % 0.8-7.0 % Final [facility]: [address] [facility] Baso% 0.7 % 0.2-1.2 % Final [facility]: [address] [place] Neut# 2.6 x10*3/L 1.8-5.4 x10*3/L Final [facility]: [address] [place] Low Lymph# 1.1 x10*3/L 1.3-3.6 x10*3/L Final [facility]: [address] [facility] Mon# 0.3 x10*3/L 0.3-0.8 x10*3/L Final [facility]: [address] [place] Eos# 0.11 x10*3/L 0.04-0.54 x10*3/L Final [facility]: [address] [place] Baso# 0.03 x10*3/L 0.01-0.08 x10*3/L Final [facility]: [address] [place] 01/08/2019 CMP, Serum or Plasma Alt 16 U/L 0-55 U/L Final [facility]: [address] Ast 17 U/L 5-34 U/L Final [facility]: [address] [facility] High Bun 31.7 mg/dL 8.4-25.0 mg/dL Final [facility]: [address] Alk Phos 101 unit/L 40-150 unit/L Final [facility]: [address] Glucose 96 mg/dL 70-99 mg/dL Final [facility]: [address] Low Albumin 3.1 g/dL 3.4-5.1 g/dL Final [facility]: [address] [place] [address] High Creatinine 2.41 mg/dL 0.72-1.25 mg/dL Final [facility]: [address] ABNORMAL eGFR Non- 27 mL/min/1.73m2 Final [facility]: [address] Total Bilirubin 0.4 mg/dL 0.2-1.2 mg/dL Final [facility]: [address] ABNORMAL eGFR - 33 mL/min/1.73m2 Final [facility]: [address] Sodium 140 mEq/L 135-145 mEq/L Final [facility]: [address] Potassium 4.0 mEq/L 3.5-5.1 mEq/L Final [facility]: [address] Chloride 110 mmol/L 98-110 mmol/L Final [facility]: [address] Low Total Protein 5.6 g/dL 6.1-8.2 g/dL Final [facility]: [address] Low Calcium 8.4 mg/dL 9.0-10.2 mg/dL Final [facility]: [address] Co2 21.8 mmol/L 20.0-32.0 mmol/L Final [facility]: [address] Anion Gap 8 calc Final [facility]: [address] 01/08/2019 Lipid Panel, Serum Low Hdl 36 mg/dL Final [facility]: [address] Triglyceride 77 mg/dL 0-150 mg/dL Final [facility]: [address] VLDL (Calculated) 15 mg/dL Final [facility]: [address] cholesterol/HDL Ratio 4.0 mg/dL Final [facility]: [address] non-HDL Cholesterol (Calculated) 108 mg/dL 0-160 mg/dL Final [facility]: [address] Cholesterol 144 mg/dL 0-200 mg/dL Final [facility]: [address] LDL (Calculated) 93 mg/dL 0-130 mg/dL Final [facility]: [address] 01/08/2019 PSA, Serum or Plasma PSA, Total 0.49 NG/mL 0.00-4.00 NG/mL Final [facility]: [address] 01/08/2019 Vitamin B12 + Folate, Serum or Blood Normal Vitamin B12 492 pg/mL 200-1100 pg/mL Final [facility]: [address] Normal Folate, Serum 7.5 NG/mL Final [facility]: [address] 01/08/2019 Iron + Total Iron-binding Capacity (TIBC), Serum Normal Iron, Total 60 mcg/dL 50-180 mcg/dL Final [facility]: [address], [place] Low Iron Binding Capacity 194 mcg/dL (calc) 250-425 mcg/dL (calc) Final [facility]: [address] Normal % Saturation 31 % (calc) 20-48 % (calc) Final [facility]: [address] [place] [address], [place] 01/08/2019 Transferrin, Serum Low Transferrin 147 mg/dL 188-341 mg/dL Final [facility]: [address] [place] [address], [place] 01/08/2019 Urinalysis, Dipstick Color Color yellow [facility]: [address], [place] Color Appearance clear [facility]: [address], [place] Color Glucose negative [facility]: [address], [place] Color Bilirubin negative [facility]: [address] [place] Color Ketones negative [facility] [address] [place] Color Specific [place] 1.020 [facility]: [address] [place] Color Blood negative [facility]: [address] [place] Color PH 5.5 [facility]: [address], [place] Color Protein 300 [facility]: [address], [place] Color Urobilinogen 0.2 [facility]: [address], [place] Color Nitrites negative [facility]: [address], [place] Color Leukocytes negative [facility]: [address], [place] Glucose, Fingerstick, Blood Blood Glucose: mg/dl 152 [facility]: [address], [place] Glucose, Fingerstick, Blood Blood Glucose: mg/dl 114 [facility]: [address], [place] Allergies Code Code System Name Reaction Severity [...] Mellitus Active 02/02/2017 Legal Blindness Active 05/03/2017 Ppucunvftie-vnqfwfdjnf-ezekxk Inhibitor Adverse Reaction Active 05/03/2017 History of [...] Chronic Kidney Disease Stage 3; Secondary Hyperparathyroidism; Anemia Mihir Gregory Jr, MD: [address] [facility] [place] [address], Ph. 01/08/2019 Type 2 Diabetes Mellitus; Retinopathy with Type 2 Diabetes Mellitus; Chronic Hoarseness; Proteinuric Nephropathy Due to Diabetes Mellitus; Chronic Kidney Disease Stage 3; Hyperlipidemia; Malignant Hypertensive Chronic Kidney Disease; Screening for Malignant Neoplasm of Prostate; Peripheral Vascular Disease; Morbid Obesity; Body Mass Index 30+ - Obesity Mihir Gregory Jr, MD: [address], [facility], [place] [address], Ph. History of Present Illness Generic HPI [...]
--- OUTSIDE RECORDS SUMMARY | 2019-05-19 05:41 | XMS REPORT | Encounter Summary ---
Author Organization Unknown Address [address] [place] [address] Phone [phone] Care Team Providers Care Lapper Name Role Phone Dr. Mihir Gregory 3 [phone] Mihir Gregory Jr, MD 3 [phone] Ryan Farrell MD 82 [phone] Feng Foreman MD 107 [phone] Kiko Rowan MD 111 [phone] Julisa Gaston MD 111 [phone] Rodney Cardenas MD 118 [phone] Reason for Visit hyperlipidemia; hypertension Instructions 1. Type 2 diabetes mellitus glucose, fingerstick, blood 2. Malignant essential hypertension 3. Chronic kidney disease stage 3 Discussion Note: None recorded. Patient educational handouts: No information available. Plan of Care Reminders Provider Appointments Est Patient 10/09/2018 10:00AM Mihir Gregory Jr, MD Lab Glucose, Fingerstick, Blood 09/11/[address] [facility] ([facility] Referral None recorded. Procedures None recorded. Surgeries None recorded. Imaging None recorded. Medications Name Start Date allopurinol 100 mg tablet TAKE 1 TABLET BY MOUTH EVERY DAY amlodipine 10 mg tablet TAKE 1 TABLET BY MOUTH EVERY DAY atorvastatin 80 mg tablet TAKE 1 TABLET BY MOUTH EVERY DAY carvedilol 25 mg tablet Take 1 tablet [...] A DAY latanoprost 0.005 % eye drops mupirocin 2 % topical ointment APPLY A [...] BMI Blood Pressure 5 ft 8 in 231 lbs 35.1 kg/m2 114/62 mm[Hg] Lab Results None recorded. Allergies Code Code [...] Mellitus Active 02/02/2017 Legal Blindness Active 05/03/2017 Mfaawwfcylz-qtknhzphvc-fckvyz Inhibitor Adverse Reaction Active 05/03/2017 History of [...] History Smoking Status Never Smoker Past Encounters 09/11/2018 Type 2 Diabetes Mellitus; Malignant Essential Hypertension; Chronic Kidney Disease Stage 3 Mihir Gregory Jr, MD: [id number] [facility], [facility], [place] [address], Ph. History of Present Illness Diabetes F/U [...] fatigue Physical Exam General Adult Exam (male), Neurology Exam, Cardiology Exam Reported By: Patient Constitutional: General Appearance: well-nourished. Ambulation: ambulating normally Psychiatric: Mental Status: normal mood, normal affect, current events, past history. Orientation: to time, to place, to person. Memory: recent memory normal, remote memory normal Head: Head: normocephalic Mental Status: Language: has spontaneous speech
--- OUTSIDE RECORDS SUMMARY | 2019-05-19 05:41 | XMS REPORT | Encounter Summary ---
Author Organization Unknown Address [address] [place] [address] Phone [phone] Care Team Providers Care Supervisor [facility] Name Role Phone Dr. Mihir Gregory 3 [phone] Mihir Gregory Jr, MD 3 [phone] Ryan Farrell MD 82 [phone] Feng Foreman MD 107 [phone] Kiko Rowan MD 111 [phone] Julisa Gaston MD 111 [phone] Rodney Cardenas MD 118 [phone] Reason for Visit hypertension; diabetes Instructions 1. Type 2 diabetes mellitus glucose, fingerstick, blood glimepiride 1 mg tablet 2. Malignant hypertensive chronic kidney disease 3. Chronic kidney disease stage 3 Discussion Note: None recorded. Patient educational handouts: No information available. Plan of Care Reminders Provider Appointments Est Patient 01/08/2019 9:30AM Mihir Gregory Jr, MD Lab Glucose, Fingerstick, Blood 10/09/2018 [facility] ([facility]) [facility] Referral None recorded. Procedures None recorded. [...] TWICE A DAY glimepiride 1 mg tablet Take 1 tablet twice a day by oral route. hydralazine 100 mg tablet TAKE 1 TABLET BY MOUTH THREE TIMES A DAY latanoprost 0.005 % eye drops mupirocin 2 % topical ointment APPLY A SMALL AMOUNT TO THE AFFECTED AREA BY TOPICAL ROUTE 3 TIMES PER DAY omeprazole 20 mg capsule,delayed release TAKE [...] ft 8 in 232 lbs 35.3 kg/m2 134/72 mm[Hg] Lab Results Date Name Specimen Result Interpretation Description Value Range Status Address 09/11/2018 Glucose, Fingerstick, Blood Blood Glucose: mg/dl 150 [facility] [id number] [facility] [place] Glucose, Fingerstick, Blood Blood Glucose: mg/dl 160 [facility]) [facility] [address] [facility] [address] [address], [place] Allergies Code Code System Name Reaction Severity [...] Mellitus Active 02/02/2017 Legal Blindness Active 05/03/2017 Pzfrqdczoyp-ifchaecnzl-kuoklf Inhibitor Adverse Reaction Active 05/03/2017 History of [...] Tobacco Smoking Status Never Smoker Past Encounters 10/09/2018 Type 2 Diabetes Mellitus; Malignant Hypertensive Chronic Kidney Disease; Chronic Kidney Disease Stage 3 Mihir Gregory Jr, MD: [address], [place] [address], Ph. 09/11/2018 Type 2 Diabetes Mellitus; Malignant Essential Hypertension; Chronic Kidney Disease Stage 3 Mihir Gregory Jr, MD: [address], [place] [address], Ph. History of Present Illness Diabetes F/U Reported By: Patient HPI: Review finger sticks: home blood sugar range high. Labs: last A1C result: 5.4. Context: no [...] dizziness Endocrine: Endocrine: no fatigue Physical Exam General Adult Exam (male), Neurology Exam, Cardiology Exam, Diabetes, Diabetic Foot Exam Reported By: Patient Constitutional: General Appearance: well-nourished. Ambulation: ambulating normally Psychiatric: Mental Status: normal mood, normal affect, current events, past history. Orientation: to time, to place, to person. Memory: recent memory normal, remote memory normal Head: Head: normocephalic Mental Status: Language: has spontaneous speech
[2019-05-19 09:30] VITALS: BP 168/77
--- NOTE | 2019-05-19 12:40 | Operative Report ---
DATE OF PROCEDURE: 05/19/2019 SURGEON: Warren Méndez MD PREOPERATIVE DIAGNOSES: Hoarseness, right true vocal cord mass. POSTOPERATIVE DIAGNOSES: Hoarseness, right true vocal cord mass. PROCEDURES: Direct operative suspension microlaryngoscopy with operating microscope. Excision of right true vocal cord mass. SIGNIFICANT FINDINGS: Spherical soft tissue mass measuring approximately 1.5 cm attached to the right true vocal cord mucosa. After excision of right true vocal cord mass, the right true vocal cord mucosa appeared to be diffusely irregular. CONDUIT MECHANIC: None. ANESTHESIA: General endotracheal tube anesthesia with 6.5 ET tube. SPECIMENS REMOVED: Right true vocal cord mass. ESTIMATED BLOOD LOSS: Less than 1 mL. COMPLICATIONS: None. INDICATIONS: The patient is a 63-year-old male with one-year history of hoarseness, postnasal drip, globus sensation and throat clearing as well as mild odynophagia. He has had no previous throat or neck surgery. He quit smoking in 1993. Flexible fiberoptic nasolaryngoscopy revealed a spherical relatively- pedunculated soft tissue mass involving the right true vocal cord. He is scheduled for direct operative suspension microlaryngoscopy with operating microscope and excision of right true vocal cord soft tissue mass under general anesthesia. Risks and complications of the procedures were thoroughly discussed with the patient and his sister and include infection, bleeding, scarring, failure to improve, possibility of malignancy and need for further treatment and surgery, anesthesia complications resulting in , permanent worsening of voice, inability to swallow, airway obstruction, chronic throat pain, need for blood transfusions, damage to surrounding nerves, blood vessels and muscles, damage to teeth, gums. tongue, and lips. The patient and his sister fully understand and gave consent. DESCRIPTION OF PROCEDURE: The patient was taken to the operating room and placed supine on the operating table, where general anesthesia was achieved through orotracheal intubation with a 6.5 endotracheal tube. Eyes were taped. Head and body were draped. Table was turned 90 degrees with the head towards the surgeon. A plastic tooth guard was then placed over the upper teeth. The [place]ita laryngoscope was then inserted without difficulty. The upper airway was visualized easily. The laryngeal structures were then visualized. The [place] laryngoscope was then placed intosuspension on the [place] stand. The left vocal cord appeared to be normal. There appeared to be an approximately 1.5 cm spherical soft tissue mass attached to the right true vocal cord. It appeared to be relatively pedunculated. This was then excised at its base with Bellucci scissors and was sent for permanent section analysis. Hemostasis was obtained with cottonoid pledgets soaked with Afrin. Thorough visualization of the anatomy revealed no other lesions in the larynx or subglottis. The right true vocal cord, however, had diffusely irregular appearance following the removal of the right true vocal cord mass. The [place]iquita laryngoscope was then taken out of suspension. The plastic tooth guard was also removed revealing no trauma to the teeth, gums, tongue, and lips. The patient was awakened in the operating room, extubated, and taken to the recovery room in good condition. Warren Méndez MD JKY/MODL /[id number] MTDD
== END | disposition home or self-care (01) ==
LOC: OR 05:08
PROVIDERS: ATTEND Otolaryngology
DX: C32.0 Malignant neoplasm of glottis (principal); R49.0 Dysphonia; E11.9 Type 2 diabetes mellitus without complications; I10 Essential (primary) hypertension; N18.9 Chronic kidney disease, unspecified; J38.3 Other diseases of vocal cords
CPT/HCPCS: 36415; 71046; 80048; 82948; 88305; 88342; 93005; J0330; J1100; J2001; J2250; J2405; J2710; J3010